=== PATIENT | male | born 1940 | race Caucasian/White ===

== ENCOUNTER 2016-11-12 17:06 | Emergency (ER) | payer MEDICARE ==
--- NOTE | ~2016-11-12 | CR142 ---
[facility]. [facility] A Service of [facility] & [facility] RADIOLOGY TEXT RESULTS PATIENT: GERALDO VICTORIA LOCATION: SED : 38 UNIT #: [id number] AGE: [address]: GERALDO MEDINA SEX: M ORDER DR: [id number] [place] [id number] E MR#: [id number] #: [id number] NAME: GERALDO VICTORIA : 1940 SEX: M STUDY DATE/TIME: 11/12/2016 17:26 UNIT: SED ROOM: STUDY DESCRIPTION: CR Hand Min 3 Views Rt Attending Physician: Geraldo Medina Aprn Ordering Physician: Geraldo Medina Aprn Primary Care Physician: James Hurd Jr., M.D. MEDICAL IMAGING REPORT This report is preliminary unless electronic signature is present. EXAM Right hand INDICATIONS Right hand pain. Penetrating foreign body. FINDINGS 3 views of the right hand without comparison. There is no acute fracture or dislocation. 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 No retained foreign body. IMPRESSION No retained foreign body. Dictated by... Fox Fernandez M.D. THIS IS AN ELECTRONICALLY VERIFIED REPORT Fox Fernandez M.D. at 11/13/2016 10:26 PM AMIRAH/martina TD: 11/12/2016 18:39 JOB #: [id number] MEDICAL IMAGING REPORT Page 1 of 1
[~2016-11-12 17:06] MED LIST: ASPIRIN PO; COREG PO; CRESTOR PO; LISINOPRIL PO; PLAVIX; ZANTAC PO
== END 2016-11-12 18:22 | disposition home or self-care (01) ==
LOC: SED 17:06
DX: S61.411A Laceration without foreign body of right hand, initial encounter (principal); I10 Essential (primary) hypertension; I25.2 Old myocardial infarction; Z79.82 Long term (current) use of aspirin; Z23 Encounter for immunization; Z79.899 Other long term (current) drug therapy; W45.8XXA Other foreign body or object entering through skin, initial encounter; Y92.9 Unspecified place or not applicable
CPT/HCPCS: 12001; 73130; 90471; 90715; 99283